=== PATIENT | male | born 1995 | race Two or more races ===

== ENCOUNTER 2023-09-07 10:02 | Emergency (ER) | payer OTHER ==
[2023-09-07 10:07] VITALS: BP 112/70; PULSE 65; RESP 18; TEMP 98; BMI 24.3
[2023-09-07] MEDS ORDERED: KETOROLAC TROMETHAMINE 30 MG/1 ML VIAL ONE (10:31)
[2023-09-07] MEDS: KETOROLAC TROMETHAMINE 30 MG/1 ML VIAL IM ONE (10:41)
== END 2023-09-07 11:41 | disposition home or self-care (01) ==
LOC: JERFT 10:02
PROC: 3E0133Z Introduction of Anti-inflammatory into Subcutaneous Tissue, Percutaneous Approach (ICD-10-PCS; principal; 2023-09-07)
DX: S93.491A Sprain of other ligament of right ankle, initial encounter (principal); X50.1XXA Overexertion from prolonged static or awkward postures, initial encounter; Y93.64 Activity, baseball
CPT/HCPCS: 73610-TC-RT-FY; 73630-TC-RT-FY; 99284-25

== ENCOUNTER 2023-12-16 23:32 | Emergency (ER) | payer OTHER ==
[2023-12-16 23:47] VITALS: BP 116/80; PULSE 62; RESP 16; TEMP 98; BMI 23.6
[2023-12-17] MEDS ORDERED: BUPIVACAINE HCL/PF 0.5% (5MG/ML) 10 ML VIAL ONE (00:11)
[2023-12-17] MEDS ORDERED: KETOROLAC TROMETHAMINE 30 MG/1 ML VIAL ONE (00:24)
[2023-12-17] MEDS ORDERED: DEXAMETHASONE SOD PHOSPHATE 10 MG/1 ML VIAL ONE (00:25)
[2023-12-17] MEDS: BUPIVACAINE HCL 0.25% 125 MG/50 ML VIAL INF ONE (00:26)
[2023-12-17] MEDS: DEXAMETHASONE SOD PHOSPHATE 10 MG/1 ML VIAL IVPUSH ONE (00:26)
[2023-12-17] MEDS: KETOROLAC TROMETHAMINE 30 MG/1 ML VIAL IM ONE (00:27)
[2023-12-17] MEDS: LIDOCAINE 4% PATCH TP ONE (00:32)
[2023-12-17] MEDS ORDERED: LIDOCAINE 4% PATCH TP ONE (00:32)
[2023-12-17] MEDS ORDERED: LIDOCAINE PATCH REMOVAL MC SCH (22:00)
== END 2023-12-17 01:41 | disposition home or self-care (01) ==
LOC: JER 23:32
PROC: 3E033GC Introduction of Other Therapeutic Substance into Peripheral Vein, Percutaneous Approach (ICD-10-PCS; principal; 2023-12-17)
PROC: 3E0233Z Introduction of Anti-inflammatory into Muscle, Percutaneous Approach (ICD-10-PCS; 2023-12-17)
DX: M54.2 Cervicalgia (principal); M25.512 Pain in left shoulder; R55 Syncope and collapse; M62.838 Other muscle spasm
CPT/HCPCS: 93005; 93010; 99284-25; J1100